=== PATIENT | female | born 1990 | race Caucasian/White ===

== ENCOUNTER → 2019-05-19 | Outpatient (REF) | payer OTHER | LOC: M LAB LCGH 11:55 | PROVIDERS: ATTEND Obstetrics & Gynecology | DX: Z34.90 Encounter for supervision of normal pregnancy, unspecified, unspecified trimester (principal) ==

== ENCOUNTER → 2020-07-05 | Outpatient (CLI) | payer OTHER ==
[~2020-07-05] MED LIST: PEPC10TA6 PO
== END ==
LOC: M LABSMTC 11:39
PROVIDERS: ATTEND Anesthesiology
DX: Z01.812 Encounter for preprocedural laboratory examination (principal); Z20.822 Contact with and (suspected) exposure to COVID-19

== ENCOUNTER 2020-07-10 10:24 | Day surgery (SDC) | payer OTHER ==
[~2020-07-10] VITALS: Ht 154.9 cm; Wt 54.0 kg
[~2020-07-10 10:24] MED LIST changes: +LIDOCAINE 1% MDV 20ML VIAL SQ PRN; +LR 1,000 ML IV ONE
[2020-07-10] MEDS ORDERED: fentaNYL 250 MCG/5 ML INJECTION (J3010) As Ordered ONE (11:04)
[2020-07-10] MEDS ORDERED: dexameTHASONE 4 MG/ML 1ML VIAL (J1100 PER 1MG) As Ordered ONE (11:05)
[2020-07-10] MEDS ORDERED: ROCURONIUM BROMIDE 50 MG/5 ML VIAL As Ordered ONE (11:05)
[2020-07-10] MEDS ORDERED: MIDAZOLAM INJ 2MG/2ML VIAL (J2250 PER 1MG) As Ordered ONE (11:05)
[2020-07-10] MEDS ORDERED: ACETAMINOPHEN 1000MG 100ML IV BTL (OFIRMEV) (J0131 PER 10MG) As Ordered ONE (11:05)
[2020-07-10] MEDS ORDERED: propofoL 200 MG/20 ML VIAL As Ordered ONE (11:05)
[2020-07-10] MEDS ORDERED: KETOROLAC 60MG 2ML VIAL As Ordered ONE (11:05)
[2020-07-10] MEDS ORDERED: LIDOCAINE 2% 100MG/5ML SDV (FOR ANES.) As Ordered ONE (11:05)
[2020-07-10] MEDS ORDERED: ONDANSETRON 4MG/2ML VIAL As Ordered ONE (11:05)
[2020-07-10] MEDS ORDERED: BUPIVACAINE/EPIN 0.25% 30 ML VIAL As Ordered ONE (12:02)
[2020-07-10] MEDS ORDERED: LACRILUBE (AKWA TEARS) OPHTH OINT 3.5 GM As Ordered ONE (12:34)
[2020-07-10] MEDS ORDERED: PHENYLephrine 500MCG 5ML (100MCG/ML) SYRINGE As Ordered ONE (12:50)
[2020-07-10] MEDS ORDERED: SUGAMMADEX SODIUM 500 MG/5 ML VIAL (BRIDION) As Ordered ONE (13:09)
--- NOTE | 2020-07-10 13:30 | RO ---
OPERATIVE NOTE DATE OF OPERATION: 07/10/2020 PREOPERATIVE DIAGNOSIS: Biliary dyskinesia. POSTOPERATIVE DIAGNOSIS: Biliary dyskinesia. PROCEDURE: Robotic cholecystectomy. SURGEON: Rai Eaton MD TURBINE ATTENDANT: Maryse Kelsey NP ANESTHESIA: General. EBL: 5 mL. COMPLICATIONS: None. INDICATIONS FOR PROCEDURE: The patient is a 29-year-old female who presents with right upper quadrant pains, found to have likely biliary dyskinesia. Recommendations were to proceed with a robotic cholecystectomy. Risks and benefits of the procedure not limited to but including bleeding, infection, hernia formation, damage to surrounding structures and need for further surgery were discussed in detail with the patient. Informed consent was obtained and procedure was planned. DESCRIPTION OF PROCEDURE: The patient was brought back to operating room 7. After sufficient sedation, the abdomen was sterilely prepped and draped. Next, timeout was done to confirm proper patient and proper procedure. Following that, an 8 mm incision was made in the left upper quadrant, and the Veress needle was inserted. The abdomen was insufflated to 15 mmHg. Veress needle was then removed. An 8 mm Optiview port was used to gain access to the abdomen. Once the abdomen was entered, there was a small umbilical hernia as well as a loop of small bowel adhered inferior to the umbilicus in the midline. The rest of the upper abdomen was normal. I was able to get three more ports in the right upper quadrant. Next, the fundus of the gallbladder was elevated up towards the right shoulder. The cystic duct and cystic artery were carefully dissected free using a combination of blunt and sharp dissection. Once they were both clearly identified, they were both doubly clipped and cut. The gallbladder was then dissected free from the gallbladder fossa using electrocautery. Once the gallbladder was dissected free from the gallbladder fossa using cautery and removed intact. It was placed inside of a 5-mm Endo Catch bag and brought out through the right lateral port site. Once the gallbladder was removed, the abdomen was desufflated. Skin incisions were closed with 4-0 Vicryl subcuticular sutures. The abdomen was cleaned and dried. Steri-Strips, 4x4 and tape were applied.
[2020-07-10] MEDS ORDERED: fentaNYL 100 MCG/2 ML INJECTION (J3010) As Ordered ONE (13:32)
[2020-07-10] MEDS: fentaNYL 100 MCG/2 ML INJECTION (J3010) IV PRN ×4 (13:33→13:48)
[2020-07-10] MEDS ORDERED: HYDROMORPHONE HCL 0.5 MG/ 0.5 ML SYRINGE (J1170 PER 1) IV PRN (13:40)
[2020-07-10] MEDS ORDERED: ONDANSETRON 4MG/2ML VIAL IV PRN (13:40)
[2020-07-10] MEDS ORDERED: oxyCODONE 5MG TAB PO PRN (13:40)
[2020-07-10] MEDS ORDERED: LR 1,000 ML IV SCH (13:40)
[2020-07-10] MEDS ORDERED: NORCO, ANEXSIA 5/325MG TABLET (HYDROcodone/ACETAMINOPHEN) PO PRN (13:45)
[2020-07-10] MEDS ORDERED: METOCLOPRAMIDE INJ 10MG/2ML VIAL (J2765 PER 1) IV ONE (14:35)
[2020-07-10 16:15] VITALS: BP 119/63
== END 2020-07-10 16:18 | disposition home or self-care (01) ==
LOC: M SDC 10:24
PROVIDERS: ATTEND Surgery
DX: K82.8 Other specified diseases of gallbladder (principal)
CPT/HCPCS: 47562; 88304; J0131; J1100; J1885; J2250; J2370; J2405; J2765; J3010; S2900

== ENCOUNTER → 2021-04-19 | Outpatient (CLI) | payer OTHER ==
[~2021-04-19] MED LIST changes: -LIDOCAINE 1% MDV 20ML VIAL SQ PRN; -LR 1,000 ML IV ONE
--- NOTE | 2021-04-19 09:50 | REP ---
INDICATION: HERNIA W/O OBSTRUCTION. COMPARISON: None. TECHNIQUE: Real-time sonographic evaluation of the midline epigastric region before and during Valsalva along with Doppler. FINDINGS: There are no abnormalities. IMPRESSION: Negative exam <Electronically signed by Mikey Brambila > 04/19/21 0940
== END ==
LOC: M RAD 09:06
PROVIDERS: ATTEND Surgery
DX: K43.9 Ventral hernia without obstruction or gangrene (principal)

== ENCOUNTER → 2021-05-18 | Outpatient (CLI) | payer OTHER ==
[~2021-05-18] MED LIST changes: +CVS1CHW58 PO; +OMEP1CAP73 PO; +PEPT262C2 PO; +VITMTA PO
== END ==
LOC: M LABSMTC 12:04
PROVIDERS: ATTEND Anesthesiology
DX: Z01.812 Encounter for preprocedural laboratory examination (principal); Z20.822 Contact with and (suspected) exposure to COVID-19

== ENCOUNTER → 2024-05-12 | Outpatient (REF) | payer OTHER | LOC: M SFHCRHEU 10:57 | PROVIDERS: ATTEND Internal Medicine | DX: M25.551 Pain in right hip (principal); Z53.9 Procedure and treatment not carried out, unspecified reason ==